=== PATIENT | female | born 1960 | race Caucasian/White ===

== ENCOUNTER 2022-05-09 18:46 | Emergency (ER) | payer SELFPAY ==
[~2022-05-09] VITALS: Ht 160 cm; Wt 109.0 kg
[2022-05-09] MEDS: ASPIRIN 81MG TABLET PO ONE ×2 (22:54→22:58)
[2022-05-09 23:27] LABS: CHLORIDE 101 mEq/L (98-107)
[2022-05-09 23:35] LABS: BASOPHILS % 0.4 % (0.0-2.0); EOSINOPHILS % 0.9 % (0.0-5.0); HEMATOCRIT. 36.7 % (36.0-48.0); HEMOGLOBIN. 12.3 g/dL (12.0-16.0); MEAN CORPUSCULAR HEMOGLOBIN 28.6 pg (28.0-32.0); MEAN CORPUSCULAR VOLUME 85.7 fL (81.0-99.0); MEAN PLATELET VOLUME 9.3 fl (7.4-10.4); MONOCYTES % 7.8 % (2.0-8.0); NEUTROPHILS % 58.9 % (40.0-76.0); PLATELET 196 x1000/uL (130-400); RED BLOOD CELL COUNT 4.29 mill/uL (4.2-5.4); RED CELL DISTRIBUTION WIDTH 13.7 % (11.6-14.6)
[2022-05-10] MEDS ORDERED: METHOCARBAMOL 500MG TABLET PO ONE
[2022-05-10] MEDS ORDERED: LIDOCAINE 5% PATCH TOP SCH
[2022-05-10] MEDS ORDERED: POTASSIUM CHLORIDE 20MEQ TABLET SR PO ONE (00:45)
[2022-05-10] MEDS ORDERED: LIDO1ADH23 TP (02:21)
[2022-05-10] MEDS ORDERED: METH-773 MT (02:21)
[2022-05-10 03:12] VITALS: BP 140/74
== END 2022-05-10 03:18 | disposition home or self-care (01) ==
LOC: ER 18:46
DX: R07.89 Other chest pain (principal); M54.9 Dorsalgia, unspecified; M25.512 Pain in left shoulder; M79.602 Pain in left arm; R94.31 Abnormal electrocardiogram [ECG] [EKG]
CPT/HCPCS: 36415; 71045; 73030; 80053; 83880; 84484; 85025; 93005; 99285; Z7610